=== PATIENT | female | born 1975 | race Caucasian/White ===

== ENCOUNTER 2020-06-01 23:18 | Emergency (ER) | payer MEDICARE ==
[2020-06-02] MEDS ORDERED: Ketorolac Tromethamine 30 MG/ML VIAL ONE (00:15)
== END 2020-06-02 00:22 | disposition home or self-care (01) ==
LOC: CSHERS 23:18
DX: K04.7 Periapical abscess without sinus (principal); B20 Human immunodeficiency virus [HIV] disease; J45.909 Unspecified asthma, uncomplicated; F17.210 Nicotine dependence, cigarettes, uncomplicated; Z79.899 Other long term (current) drug therapy
CPT/HCPCS: 96372; 99282; J1885

== ENCOUNTER 2022-05-03 04:01 | Inpatient (IN) | payer MEDICARE ==
[2022-05-03] MEDS ORDERED: cefTRIAXone\\ROCEPHIN 1 GM VIAL ONE (05:00)
[2022-05-03] MEDS ORDERED: Azithromycin 500 MG VIAL ONE (05:00)
[2022-05-03 05:19] LABS: ALT (SGPT) 33 U/L (8-55); AST (SGOT) 25 U/L (5-34); Albumin 3.7 g/dL (3.5-5.0); Alkaline Phosphatase 117 U/L (40-110); Anion Gap 14 mmol/L (10-20); BUN (Urea Nitrogen) 8 mg/dL (7.0-18.7); Bilirubin, Total 0.2 mg/dL (0.2-1.2); Calc. Creatinine Clearance 0 mL/min (70-130); Calcium 8.5 mg/dL (7.8-10.44); Carbon Dioxide 21 mmol/L (22-29); Chloride 104 mmol/L (98-107); Estimated GFR 108; Globulin 3.6 g/dL (2.4-3.5); Glucose 144 mg/dL (70-105); Potassium 3.7 mmol/L (3.5-5.1); Protein, Total 7.3 g/dL (6.0-8.3); Sodium 135 mmol/L (136-145)
[2022-05-03 05:43] LABS: #Basophils 0.1 10x3/uL (0.0-0.2); #Eosinphils 0.1 10x3/uL (0.0-0.5); #Monocytes 0.5 10x3/uL (0.0-1.1); #Neutrophils 8.1 10x3/uL (1.5-8.4); %Basophils 0.5 % (0.0-2.0); %Eosinophils 0.9 % (0.0-6.0); %Lymphocytes 12.7 % (18.0-47.0); %Monocytes 5.3 % (0.0-10.0); %Neutrophils 80.3 % (40.0-75.0); Hemoglobin 7.9 g/dL (12.0-15.5); Mean Corpuscular HGB CONC 29.5 g/dL (32.0-36.0); Mean Corpuscular Hemoglobin 23.9 pg (27.0-33.0); Mean Corpuscular Volume 81.2 fl (81.6-98.3); Mean Platelet Volume 10.2 fl (7.4-10.4); Platelet Count 437 10x3/uL (150-450); RBC Distribution Width 19.8 % (11.5-14.5)
[2022-05-03] MEDS ORDERED: Ketorolac Tromethamine 30 MG/ML VIAL ONE (06:48)
[2022-05-03] MEDS ORDERED: Iopamidol 370 76% 100 ML VIAL ONE (08:44)
[2022-05-03] MEDS ORDERED: Ondansetron ODT 4 MG TAB PO PRN (09:40)
[2022-05-03] MEDS ORDERED: Ondansetron PF 4 MG/2 ML Vial IVP PRN (09:40)
[2022-05-03] MEDS ORDERED: Senokot S 8.6-50 MG TAB PO PRN (09:40)
[2022-05-03] MEDS ORDERED: SALMETEROL IH PRN (09:46)
[2022-05-03] MEDS ORDERED: Metoprolol Tartrate 25 MG TAB PO PRN (09:46)
[2022-05-03] MEDS ORDERED: FLUTICASONE PROPION IH PRN (09:46)
[2022-05-03] MEDS ORDERED: [UNRECOGNIZED DRUG - OTHER] IH PRN (09:46)
[2022-05-03 09:48] LABS: Bilirubin Neg (Negative); Blood, Urine Negative (Negative); Clarity Clear (Clear); Glucose, Urine (Dipstick) Normal (Negative); Ketone, Urine Negative (Negative); Leukocyte 100 (Negative); Nitrite Negative (Negative); Protein, Urine (Dipstick) 15 mg/dl (Neg-Trace); Specific Gravity, Urine 1.005 (1.005-1.030); Urobilinogen Normal mg/dL (Less than 2)
[2022-05-03] MEDS ORDERED: Benzonatate 100 MG CAP PO PRN (09:53)
[2022-05-03] MEDS ORDERED: Ipratropium/Albuterol 3 ML NEB NEB PRN (09:53)
[2022-05-03 09:58] LABS: Bacteria/HPF Rare-Few HPF (None Seen); RBC/HPF 0-3 HPF (0-3); Squamous Epithelial 0-3 HPF (0-3); WBC/HPF 0-3 HPF (0-3)
[2022-05-03 10:03] LABS: BHCG - Serum Negative (NEGATIVE); Pregs Control Background? CLEAR/WHITE (CLR/WHITE); Pregs Control Bar Appear? YES (CONTROL BAR)
[2022-05-03] MEDS: Ipratropium/Albuterol 3 ML NEB NEB SCH ×4 (10:30→23:34)
[2022-05-03 10:32] LABS: SARS-CoV-2 NAA Rapid Test Not Detected (NotDetected)
[2022-05-03 13:08] LABS: Iron 19 ug/dL (50-170); Iron Binding Capacity, Total 375 mcg/dL (265-497); Transferrin, Serum 300 mg/dL (180-382)
[2022-05-03] MEDS ORDERED: Acetaminophen/Codeine 30-300mg Tablet PO PRN (15:54)
[2022-05-03] MEDS ORDERED: GUAIFENESIN SF SOLN 200 MG/10 ML UDCUP PO PRN (15:54)
[2022-05-03] MEDS: Nicotine 14 MG PATCH TD SCH (16:19)
[2022-05-03] MEDS: Dicyclomine 10 MG CAP PO SCH ×2 (16:27→21:41)
[2022-05-03] MEDS: Sodium Chloride 0.9% 1,000 ML IV SCH (16:28)
[2022-05-03 16:46] VITALS: BMI 59.4
[2022-05-03] MEDS: Arformoterol 15 MCG/2 ML NEB NEB SCH (20:16)
[2022-05-03 20:56] LABS: Legionella Urinary Ag Negative (Negative); Strep pneumo Urine Ag NEGATIVE (NEGATIVE)
[2022-05-03] MEDS: Atorvastatin Calcium 40 MG TAB PO SCH (21:41)
[2022-05-03] MEDS: Famotidine 20 MG TAB PO SCH (21:41)
[2022-05-03] MEDS: busPIRone HCl 5 MG TAB PO SCH (21:41)
[2022-05-03] MEDS: Metoprolol Tartrate 25 MG TAB PO SCH (21:42)
[2022-05-03] MEDS: Acetaminophen 325 MG TAB PO PRN (21:57)
[2022-05-04] MEDS: Acetaminophen 325 MG TAB PO PRN (04:00)
[2022-05-04] MEDS: Ipratropium/Albuterol 3 ML NEB NEB SCH ×6 (04:10→23:33)
[2022-05-04] MEDS: Sodium Chloride 0.9% 1,000 ML IV SCH (04:45)
[2022-05-04 04:56] LABS: #Eosinphils 0.1 10x3/uL (0.0-0.5); #Monocytes 0.4 10x3/uL (0.0-1.1); #Neutrophils 6.2 10x3/uL (1.5-8.4); %Basophils 0.3 % (0.0-2.0); %Eosinophils 0.9 % (0.0-6.0); %Lymphocytes 11.4 % (18.0-47.0); %Monocytes 4.8 % (0.0-10.0); %Neutrophils 82.2 % (40.0-75.0); Hemoglobin 8.7 g/dL (12.0-15.5); Mean Corpuscular HGB CONC 28.9 g/dL (32.0-36.0); Mean Corpuscular Hemoglobin 23.7 pg (27.0-33.0); Mean Platelet Volume 9.8 fl (7.4-10.4); Platelet Count 325 10x3/uL (150-450); RBC Distribution Width 19.9 % (11.5-14.5); Red Blood Cell (RBC) Count 3.67 10x6/uL (3.90-5.03); White Blood Cell (WBC) Count 7.6 10x3/uL (3.5-10.5)
[2022-05-04 05:09] LABS: Anion Gap 16 mmol/L (10-20); BUN (Urea Nitrogen) 4 mg/dL (7.0-18.7); Calc. Creatinine Clearance 265 mL/min (70-130); Calcium 8.6 mg/dL (7.8-10.44); Carbon Dioxide 20 mmol/L (22-29); Chloride 106 mmol/L (98-107); Estimated GFR 111; Glucose 127 mg/dL (70-105); Potassium 3.9 mmol/L (3.5-5.1); Sodium 138 mmol/L (136-145)
[2022-05-04] MEDS: Azithromycin 500 MG in Sodium Chloride 0.9% 250 ML 250 ML IVPB SCH (05:38)
[2022-05-04] MEDS: cefTRIAXone\\ROCEPHIN 2 GM in Sodium Chloride 0.9% 100 ML IVPB SCH (06:49)
[2022-05-04] MEDS: Arformoterol 15 MCG/2 ML NEB NEB SCH ×2 (08:13→19:09)
[2022-05-04] MEDS: Mometasone/Formoterol 60 PUFF AER INH SCH (08:15)
[2022-05-04] MEDS ORDERED: [UNRECOGNIZED DRUG - OTHER] PO SCH (09:00)
[2022-05-04] MEDS: Famotidine 20 MG TAB PO SCH ×2 (09:51→22:24)
[2022-05-04] MEDS: busPIRone HCl 5 MG TAB PO SCH ×2 (09:51→22:23)
[2022-05-04] MEDS: Dicyclomine 10 MG CAP PO SCH ×4 (09:51→22:23)
[2022-05-04] MEDS: Metoprolol Tartrate 25 MG TAB PO SCH ×2 (09:51→23:00)
[2022-05-04] MEDS: guaiFENesin/Codeine Phosphate 100 mg/10 mg 5 ml UD Cup PO PRN (09:51)
[2022-05-04] MEDS: Gabapentin 300 MG CAP PO SCH (09:51)
[2022-05-04] MEDS: Amlodipine 5 MG TAB PO SCH (09:52)
[2022-05-04] MEDS: Nicotine 14 MG PATCH TD SCH (12:04)
[2022-05-04] MEDS: Benzonatate 100 MG CAP PO SCH ×2 (14:08→22:24)
[2022-05-04] MEDS: Acetaminophen/Codeine 30-300mg Tablet PO PRN (15:57)
[2022-05-04] MEDS: Atorvastatin Calcium 40 MG TAB PO SCH (22:24)
[2022-05-05] MEDS: guaiFENesin/Codeine Phosphate 100 mg/10 mg 5 ml UD Cup PO PRN ×3 (01:28→15:26)
[2022-05-05 04:55] LABS: #Eosinphils 0.2 10x3/uL (0.0-0.5); #Monocytes 0.4 10x3/uL (0.0-1.1); #Neutrophils 7.9 10x3/uL (1.5-8.4); %Basophils 0.1 % (0.0-2.0); %Eosinophils 2.3 % (0.0-6.0); %Lymphocytes 8.5 % (18.0-47.0); %Monocytes 4.3 % (0.0-10.0); %Neutrophils 84.4 % (40.0-75.0); Hemoglobin 8.3 g/dL (12.0-15.5); Mean Corpuscular HGB CONC 28.7 g/dL (32.0-36.0); Mean Corpuscular Hemoglobin 23.5 pg (27.0-33.0); Mean Corpuscular Volume 81.9 fl (81.6-98.3); Mean Platelet Volume 9.6 fl (7.4-10.4); Platelet Count 293 10x3/uL (150-450); RBC Distribution Width 19.9 % (11.5-14.5); Red Blood Cell (RBC) Count 3.53 10x6/uL (3.90-5.03); White Blood Cell (WBC) Count 9.4 10x3/uL (3.5-10.5)
[2022-05-05] MEDS: Ipratropium/Albuterol 3 ML NEB NEB SCH ×6 (04:59→22:59)
[2022-05-05 05:06] LABS: Anion Gap 16 mmol/L (10-20); BUN (Urea Nitrogen) 4 mg/dL (7.0-18.7); Calc. Creatinine Clearance 270 mL/min (70-130); Calcium 8.4 mg/dL (7.8-10.44); Carbon Dioxide 20 mmol/L (22-29); Chloride 106 mmol/L (98-107); Estimated GFR 111; Glucose 126 mg/dL (70-105); Potassium 3.5 mmol/L (3.5-5.1); Sodium 138 mmol/L (136-145)
[2022-05-05] MEDS: Azithromycin 500 MG in Sodium Chloride 0.9% 250 ML 250 ML IVPB SCH (05:45)
[2022-05-05] MEDS: Arformoterol 15 MCG/2 ML NEB NEB SCH ×2 (06:40→19:00)
[2022-05-05] MEDS: cefTRIAXone\\ROCEPHIN 2 GM in Sodium Chloride 0.9% 100 ML IVPB SCH (06:46)
[2022-05-05] MEDS: Mometasone/Formoterol 60 PUFF AER INH SCH ×2 (06:55→18:52)
[2022-05-05] MEDS: Benzonatate 100 MG CAP PO SCH ×3 (08:16→21:05)
[2022-05-05] MEDS: busPIRone HCl 5 MG TAB PO SCH ×2 (08:16→21:05)
[2022-05-05] MEDS: Amlodipine 5 MG TAB PO SCH (08:17)
[2022-05-05] MEDS: Famotidine 20 MG TAB PO SCH ×2 (08:17→21:05)
[2022-05-05] MEDS: Gabapentin 300 MG CAP PO SCH (08:18)
[2022-05-05] MEDS: Dicyclomine 10 MG CAP PO SCH ×4 (08:18→21:05)
[2022-05-05] MEDS: Metoprolol Tartrate 25 MG TAB PO SCH ×2 (08:18→21:07)
[2022-05-05] MEDS: Nicotine 14 MG PATCH TD SCH (11:00)
[2022-05-05] MEDS: Acetaminophen/Codeine 30-300mg Tablet PO PRN ×2 (11:21→21:06)
[2022-05-05] MEDS: Cyclobenzaprine 10 MG TAB PO PRN (11:22)
[2022-05-05] MEDS: Atorvastatin Calcium 40 MG TAB PO SCH (21:04)
[2022-05-06] MEDS: Ipratropium/Albuterol 3 ML NEB NEB SCH ×6 (02:55→22:55)
[2022-05-06] MEDS: Cyclobenzaprine 10 MG TAB PO PRN ×3 (05:24→20:51)
[2022-05-06 06:57] LABS: #Eosinphils 0.5 10x3/uL (0.0-0.5); #Monocytes 0.4 10x3/uL (0.0-1.1); #Neutrophils 7.9 10x3/uL (1.5-8.4); %Basophils 0.1 % (0.0-2.0); %Eosinophils 4.6 % (0.0-6.0); %Lymphocytes 9.9 % (18.0-47.0); %Monocytes 4.3 % (0.0-10.0); %Neutrophils 80.7 % (40.0-75.0); Anion Gap 14 mmol/L (10-20); BUN (Urea Nitrogen) 4 mg/dL (7.0-18.7); Calc. Creatinine Clearance 274 mL/min (70-130); Calcium 8.5 mg/dL (7.8-10.44); Carbon Dioxide 21 mmol/L (22-29); Chloride 105 mmol/L (98-107); Estimated GFR 112; Glucose 139 mg/dL (70-105); Hemoglobin 8.6 g/dL (12.0-15.5); Mean Corpuscular HGB CONC 28.1 g/dL (32.0-36.0); Mean Corpuscular Hemoglobin 23.4 pg (27.0-33.0); Mean Corpuscular Volume 83.2 fl (81.6-98.3); Mean Platelet Volume 9.6 fl (7.4-10.4); Platelet Count 263 10x3/uL (150-450); Potassium 3.3 mmol/L (3.5-5.1); RBC Distribution Width 19.9 % (11.5-14.5); Red Blood Cell (RBC) Count 3.68 10x6/uL (3.90-5.03); Sodium 137 mmol/L (136-145); White Blood Cell (WBC) Count 9.7 10x3/uL (3.5-10.5)
[2022-05-06] MEDS: Arformoterol 15 MCG/2 ML NEB NEB SCH ×2 (07:25→19:07)
[2022-05-06] MEDS: Mometasone/Formoterol 60 PUFF AER INH SCH ×2 (07:35→19:07)
[2022-05-06] MEDS: Amlodipine 5 MG TAB PO SCH (09:02)
[2022-05-06] MEDS: Benzonatate 100 MG CAP PO SCH ×3 (09:02→20:50)
[2022-05-06] MEDS: busPIRone HCl 5 MG TAB PO SCH ×2 (09:03→20:50)
[2022-05-06] MEDS: Metoprolol Tartrate 25 MG TAB PO SCH ×2 (09:03→23:10)
[2022-05-06] MEDS: Famotidine 20 MG TAB PO SCH ×2 (09:03→20:50)
[2022-05-06] MEDS: Gabapentin 300 MG CAP PO SCH (09:03)
[2022-05-06] MEDS: Acetaminophen/Codeine 30-300mg Tablet PO PRN ×2 (09:04→15:03)
[2022-05-06] MEDS: Dicyclomine 10 MG CAP PO SCH ×4 (09:04→20:51)
[2022-05-06] MEDS ORDERED: Potassium Chloride 20 MEQ TAB PO SCH (09:30)
[2022-05-06] MEDS: Nicotine 14 MG PATCH TD SCH (10:37)
[2022-05-06] MEDS: Azithromycin 500 MG in Sodium Chloride 0.9% 250 ML 250 ML IVPB SCH (13:08)
[2022-05-06] MEDS: Aztreonam 1 GM in Sodium Chloride 0.9% 100 ML IVPB SCH ×2 (14:30→20:56)
[2022-05-06] MEDS: diphenhydrAMINE 25 MG CAP PO PRN (17:06)
[2022-05-06] MEDS: guaiFENesin/Codeine Phosphate 100 mg/10 mg 5 ml UD Cup PO PRN (20:49)
[2022-05-06] MEDS: Atorvastatin Calcium 40 MG TAB PO SCH (20:50)
[2022-05-07] MEDS: Ipratropium/Albuterol 3 ML NEB NEB SCH ×6 (02:15→23:10)
[2022-05-07] MEDS: Aztreonam 1 GM in Sodium Chloride 0.9% 100 ML IVPB SCH ×3 (05:34→21:04)
[2022-05-07] MEDS: Arformoterol 15 MCG/2 ML NEB NEB SCH ×2 (07:30→19:00)
[2022-05-07] MEDS: Mometasone/Formoterol 60 PUFF AER INH SCH ×2 (07:40→19:10)
[2022-05-07 09:50] LABS: Anion Gap 17 mmol/L (10-20); BUN (Urea Nitrogen) 5 mg/dL (7.0-18.7); Calc. Creatinine Clearance 261 mL/min (70-130); Calcium 8.6 mg/dL (7.8-10.44); Carbon Dioxide 21 mmol/L (22-29); Chloride 106 mmol/L (98-107); Estimated GFR 110; Glucose 145 mg/dL (70-105); Potassium 3.5 mmol/L (3.5-5.1); Sodium 140 mmol/L (136-145)
[2022-05-07] MEDS: Famotidine 20 MG TAB PO SCH ×2 (10:01→21:06)
[2022-05-07] MEDS: Amlodipine 5 MG TAB PO SCH (10:01)
[2022-05-07] MEDS: Dicyclomine 10 MG CAP PO SCH ×4 (10:01→21:06)
[2022-05-07] MEDS: busPIRone HCl 5 MG TAB PO SCH ×2 (10:01→21:06)
[2022-05-07] MEDS: Benzonatate 100 MG CAP PO SCH ×3 (10:02→21:06)
[2022-05-07] MEDS: Gabapentin 300 MG CAP PO SCH (10:02)
[2022-05-07] MEDS: Metoprolol Tartrate 25 MG TAB PO SCH ×2 (10:02→21:21)
[2022-05-07] MEDS: Azithromycin 500 MG in Sodium Chloride 0.9% 250 ML 250 ML IVPB SCH (12:04)
[2022-05-07] MEDS: Nicotine 14 MG PATCH TD SCH (12:10)
[2022-05-07] MEDS: diphenhydrAMINE 25 MG CAP PO PRN ×2 (13:12→21:06)
[2022-05-07] MEDS: Atorvastatin Calcium 40 MG TAB PO SCH (21:06)
[2022-05-07] MEDS: Cyclobenzaprine 10 MG TAB PO PRN (21:06)
[2022-05-08] MEDS: Ipratropium/Albuterol 3 ML NEB NEB SCH ×5 (03:15→19:39)
[2022-05-08] MEDS: Aztreonam 1 GM in Sodium Chloride 0.9% 100 ML IVPB SCH ×3 (05:01→21:53)
[2022-05-08 05:04] LABS: Anion Gap 17 mmol/L (10-20); BUN (Urea Nitrogen) 7 mg/dL (7.0-18.7); Calc. Creatinine Clearance 270 mL/min (70-130); Calcium 8.6 mg/dL (7.8-10.44); Carbon Dioxide 22 mmol/L (22-29); Chloride 107 mmol/L (98-107); Estimated GFR 111; Glucose 118 mg/dL (70-105); Potassium 3.5 mmol/L (3.5-5.1); Sodium 142 mmol/L (136-145)
[2022-05-08] MEDS: Arformoterol 15 MCG/2 ML NEB NEB SCH ×2 (07:15→19:37)
[2022-05-08] MEDS: Mometasone/Formoterol 60 PUFF AER INH SCH ×3 (07:20→19:45)
[2022-05-08] MEDS: Amlodipine 5 MG TAB PO SCH (08:57)
[2022-05-08] MEDS: Dicyclomine 10 MG CAP PO SCH ×4 (08:57→21:54)
[2022-05-08] MEDS: Famotidine 20 MG TAB PO SCH ×2 (08:57→21:54)
[2022-05-08] MEDS: Metoprolol Tartrate 25 MG TAB PO SCH ×2 (08:57→21:55)
[2022-05-08] MEDS: busPIRone HCl 5 MG TAB PO SCH ×2 (08:57→21:54)
[2022-05-08] MEDS: Benzonatate 100 MG CAP PO SCH ×3 (08:57→21:54)
[2022-05-08] MEDS: Gabapentin 300 MG CAP PO SCH (08:58)
[2022-05-08] MEDS: Acetaminophen/Codeine 30-300mg Tablet PO PRN (09:13)
[2022-05-08] MEDS: Nicotine 14 MG PATCH TD SCH (11:24)
[2022-05-08] MEDS: Azithromycin 500 MG in Sodium Chloride 0.9% 250 ML 250 ML IVPB SCH (13:11)
[2022-05-08] MEDS: Atorvastatin Calcium 40 MG TAB PO SCH (21:54)
[2022-05-09] MEDS: Ipratropium/Albuterol 3 ML NEB NEB SCH ×4 (02:05→11:54)
[2022-05-09] MEDS: Aztreonam 1 GM in Sodium Chloride 0.9% 100 ML IVPB SCH (05:05)
[2022-05-09 05:19] LABS: Anion Gap 15 mmol/L (10-20); BUN (Urea Nitrogen) 9 mg/dL (7.0-18.7); Calc. Creatinine Clearance 270 mL/min (70-130); Calcium 8.6 mg/dL (7.8-10.44); Carbon Dioxide 23 mmol/L (22-29); Chloride 107 mmol/L (98-107); Estimated GFR 111; Glucose 115 mg/dL (70-105); Potassium 3.7 mmol/L (3.5-5.1); Sodium 141 mmol/L (136-145)
[2022-05-09] MEDS: Arformoterol 15 MCG/2 ML NEB NEB SCH (07:40)
[2022-05-09] MEDS: Mometasone/Formoterol 60 PUFF AER INH SCH (07:45)
[2022-05-09] MEDS: Amlodipine 5 MG TAB PO SCH (08:28)
[2022-05-09] MEDS: Dicyclomine 10 MG CAP PO SCH (08:28)
[2022-05-09] MEDS: Gabapentin 300 MG CAP PO SCH (08:29)
[2022-05-09] MEDS: Famotidine 20 MG TAB PO SCH (08:30)
[2022-05-09] MEDS: Metoprolol Tartrate 25 MG TAB PO SCH (08:31)
[2022-05-09] MEDS: Benzonatate 100 MG CAP PO SCH (08:31)
[2022-05-09] MEDS: busPIRone HCl 5 MG TAB PO SCH (08:31)
[2022-05-09 11:58] VITALS: BP 120/71; TEMP 98.4
[2022-05-09] MEDS: Nicotine 14 MG PATCH TD SCH (12:23)
== END 2022-05-09 12:45 | disposition home or self-care (01) | DRG 871 ==
LOC: CSHERS 04:01 → CSHTELE 14:15 → OBSVTOIN 05-04 09:15
PROVIDERS: ADMIT Internal Medicine; ATTEND Internal Medicine
DX: A41.9 Sepsis, unspecified organism (principal); J18.9 Pneumonia, unspecified organism; J96.01 Acute respiratory failure with hypoxia; I25.10 Atherosclerotic heart disease of native coronary artery without angina pectoris; I10 Essential (primary) hypertension; J45.909 Unspecified asthma, uncomplicated; F41.9 Anxiety disorder, unspecified; D50.9 Iron deficiency anemia, unspecified; Z21 Asymptomatic human immunodeficiency virus [HIV] infection status; F17.210 Nicotine dependence, cigarettes, uncomplicated; Z20.822 Contact with and (suspected) exposure to COVID-19; L89.329 Pressure ulcer of left buttock, unspecified stage; L89.319 Pressure ulcer of right buttock, unspecified stage; L89.229 Pressure ulcer of left hip, unspecified stage; F31.9 Bipolar disorder, unspecified; Z88.1 Allergy status to other antibiotic agents; Z88.8 Allergy status to other drugs, medicaments and biological substances; Z79.51 Long term (current) use of inhaled steroids; I25.2 Old myocardial infarction; Z79.899 Other long term (current) drug therapy; Z79.82 Long term (current) use of aspirin; Z90.49 Acquired absence of other specified parts of digestive tract; Z98.890 Other specified postprocedural states; Z89.512 Acquired absence of left leg below knee; Z93.3 Colostomy status
CPT/HCPCS: 36415; 71045; 71275; 80048; 80053; 81003; 81015; 83540; 83550; 83605; 83880; 84466; 84484; 84703; 85025; 86850; 86900; 86901; 87040; 87070; 87205; 87449; 87899; 93005; 94640; 94664; 94667; 94668; 94760; 94799; 96361; 96365; 96367; 96372; 96375; 96376; 97139; G0378; J0456; J0696; J1650; J1885; J1956; J3490; J7050; J7620; Q9967; U0002

== ENCOUNTER 2022-11-13 04:43 | Emergency (ER) | payer MEDICARE ==
[2022-11-13] MEDS ORDERED: Ketorolac Tromethamine 30 MG/ML VIAL ONE (05:14)
[2022-11-13 05:28] LABS: #Monocytes 0.2 10x3/uL (0.0-1.1); #Neutrophils 3.1 10x3/uL (1.5-8.4); %Basophils 0.5 % (0.0-2.0); %Eosinophils 0.5 % (0.0-6.0); %Lymphocytes 9.4 % (18.0-47.0); %Monocytes 6.2 % (0.0-10.0); %Neutrophils 83.1 % (40.0-75.0); Hematocrit 34.2 % (34.9-44.5); Mean Corpuscular HGB CONC 29.2 g/dL (32.0-36.0); Mean Corpuscular Hemoglobin 23.9 pg (27.0-33.0); Mean Corpuscular Volume 81.8 fl (81.6-98.3); Mean Platelet Volume 9.8 fl (7.4-10.4); Platelet Count 195 10x3/uL (150-450); RBC Distribution Width 19.9 % (11.5-14.5); Red Blood Cell (RBC) Count 4.18 10x6/uL (3.90-5.03); White Blood Cell (WBC) Count 3.7 10x3/uL (3.5-10.5)
[2022-11-13 05:48] LABS: ALT (SGPT) 18 U/L (8-55); AST (SGOT) 20 U/L (5-34); Albumin 3.5 g/dL (3.5-5.0); Alkaline Phosphatase 108 U/L (40-110); Anion Gap 12 mmol/L (10-20); BUN (Urea Nitrogen) 6 mg/dL (7.0-18.7); Bilirubin, Total 0.2 mg/dL (0.2-1.2); Calc. Creatinine Clearance 0 mL/min (70-130); Calcium 8.2 mg/dL (7.8-10.44); Carbon Dioxide 19 mmol/L (22-29); Chloride 108 mmol/L (98-107); Estimated GFR 110; Globulin 3.7 g/dL (2.4-3.5); Glucose 115 mg/dL (70-105); Lipase 33 U/L (8-78); Magnesium 1.7 mg/dL (1.6-2.6); Potassium 3.4 mmol/L (3.5-5.1); Protein, Total 7.2 g/dL (6.0-8.3); Sodium 136 mmol/L (136-145)
[2022-11-13 05:55] LABS: Troponin I Less than 0.010 ng/mL (< 0.028)
[2022-11-13 06:04] LABS: SARS-CoV-2 NAA Rapid Test DETECTED (NotDetected)
== END 2022-11-13 07:03 | disposition home or self-care (01) ==
LOC: CSHERS 04:43
DX: U07.1 COVID-19 (principal); I10 Essential (primary) hypertension; I25.10 Atherosclerotic heart disease of native coronary artery without angina pectoris; F17.210 Nicotine dependence, cigarettes, uncomplicated
CPT/HCPCS: 0240U; 71045; 83605; 83690; 83735; 83880; 84484; 93005; 80053; 84443; 85025; 93010; 96372; 99285; J1885

== ENCOUNTER 2024-02-12 21:54 | Emergency (ER) | payer MEDICARE, OTHER ==
[2024-02-13] MEDS ORDERED: methylPREDNISolone Sod Succ/PF 125 MG/2 ML VIAL ONE (00:51)
[2024-02-13] MEDS ORDERED: Ketorolac Tromethamine 30 MG (1 mL) VIAL ONE (00:52)
[2024-02-13] MEDS ORDERED: Ipratropium/Albuterol 3 ML NEB ONE (00:54)
[2024-02-13 01:06] LABS: #Basophils 0.02 10x3/uL (0.0-0.2); #Eosinophils 0.09 10x3/uL (0.0-0.5); #Monocytes 0.36 10x3/uL (0.0-1.1); #Neutrophils 3.37 10x3/uL (1.5-8.4); %Basophils 0.3 % (0.0-2.0); %Eosinophils 1.4 % (0.0-6.0); %Lymphocytes 40.1 % (18.0-47.0); %Monocytes 5.6 % (0.0-10.0); %Neutrophils 52.3 % (40.0-75.0); Hematocrit 31.2 % (34.9-44.5); Hemoglobin 8.8 g/dL (12.0-15.5); Mean Corpuscular HGB CONC 28.2 g/dL (32.0-36.0); Mean Corpuscular Hemoglobin 24.6 pg (27.0-33.0); Mean Corpuscular Volume 87.2 fL (81.6-98.3); Mean Platelet Volume 9.3 fL (7.4-10.4); Platelet Count 303 10x3/uL (150-450); RBC Distribution Width 22.8 % (11.5-14.5); Red Blood Cell (RBC) Count 3.58 10x6/uL (3.90-5.03); White Blood Cell (WBC) Count 6.4 10x3/uL (3.5-10.5)
[2024-02-13 01:23] LABS: ALT (SGPT) 30 U/L (8-55); AST (SGOT) 28 U/L (5-34); Albumin 3.4 g/dL (3.5-5.0); Alkaline Phosphatase 229 U/L (40-110); Anion Gap 14 mmol/L (10-20); BUN (Urea Nitrogen) 10 mg/dL (7.0-18.7); Bilirubin, Total 0.4 mg/dL (0.2-1.2); Calc. Creatinine Clearance 0 mL/min (70-130); Calcium 7.9 mg/dL (7.8-10.44); Carbon Dioxide 21 mmol/L (22-29); Chloride 108 mmol/L (98-107); Estimated GFR 109; Globulin 3.8 g/dL (2.4-3.5); Glucose 124 mg/dL (70-105); Lipase 37 U/L (8-78); Potassium 3.6 mmol/L (3.5-5.1); Protein, Total 7.2 g/dL (6.0-8.3); Sodium 139 mmol/L (136-145)
[2024-02-13 01:33] LABS: Troponin I Less than 0.010 ng/mL (< 0.028)
[2024-02-13 01:41] LABS: Elliptocytes SLIGHT = 2-5 cells (100X) (0-1/hpf); Platelet Adequacy Comment Appears Adequate
[2024-02-13 01:42] LABS: Anisocytosis SLIGHT = 6-15 cells (100X) (0-5/hpf); Hypochromia SLIGHT = 6-15 cells (100X) (0-5/hpf); Ovalocytes SLIGHT = 2-5 cells (100X) (0-1/hpf); Polychromasia SLIGHT = 2-3 cells (100X) (0-2/hpf)
== END 2024-02-13 02:42 | disposition home or self-care (01) ==
LOC: CSHERS 21:54
DX: J44.9 Chronic obstructive pulmonary disease, unspecified (principal); I10 Essential (primary) hypertension; F17.210 Nicotine dependence, cigarettes, uncomplicated; F17.290 Nicotine dependence, other tobacco product, uncomplicated; Z55.6 Problems related to health literacy
CPT/HCPCS: 71045; 80053; 83690; 83880; 84484; 85025; 85379; 87428; 94640; 94760; J1885; J2919; 96374; 96375; J7620

== ENCOUNTER 2024-10-01 02:35 | Inpatient (IN) | payer MEDICARE ==
[2024-10-01 03:30] LABS: #Basophils 0.02 10x3/uL (0.0-0.2); #Eosinophils 0.04 10x3/uL (0.0-0.5); #Monocytes 0.18 10x3/uL (0.0-1.1); #Neutrophils 2.98 10x3/uL (1.5-8.4); %Basophils 0.5 % (0.0-2.0); %Eosinophils 1.0 % (0.0-6.0); %Lymphocytes 21.3 % (18.0-47.0); %Monocytes 4.4 % (0.0-10.0); %Neutrophils 72.8 % (40.0-75.0); Hematocrit 37.6 % (34.9-44.5); Hemoglobin 10.4 g/dL (12.0-15.5); Mean Corpuscular Hemoglobin 22.5 pg (27.0-33.0); Mean Corpuscular Volume 81.4 fL (81.6-98.3); Platelet Count 237 10x3/uL (150-450); Red Blood Cell (RBC) Count 4.62 10x6/uL (3.90-5.03); White Blood Cell (WBC) Count 4.09 10x3/uL (3.5-10.5)
[2024-10-01 03:33] LABS: Glucose, Urine (Dipstick) Normal (Negative); Leukocyte 100 (Negative); Protein, Urine (Dipstick) 15 mg/dl (Neg-Trace); Specific Gravity, Urine 1.005 (1.005-1.030)
[2024-10-01 03:47] LABS: Bacteria/HPF Rare-Few HPF (None Seen); CAUTI Indications for Culture Fever or rigors; RBC/HPF 0-3 HPF (0-3); WBC/HPF 0-3 HPF (0-3)
[2024-10-01 03:48] LABS: Urine Culture Reflex No No
[2024-10-01 04:06] LABS: ALT (SGPT) 23 U/L (Less than 34); AST (SGOT) 39 U/L (11-34); Albumin 3.4 g/dL (3.1-4.5); Alkaline Phosphatase 243 U/L (40-110); Anion Gap 15 mmol/L (10-20); BUN (Urea Nitrogen) 6 mg/dL (7.0-18.7); Bilirubin, Total 0.3 mg/dL (0.3-1.2); Calc. Creatinine Clearance 0 mL/min (70-130); Calcium 7.9 mg/dL (7.8-10.44); Carbon Dioxide 16 mmol/L (22-29); Chloride 110 mmol/L (98-107); Globulin 4.8 g/dL (2.4-3.5); Glucose 103 mg/dL (70-105); Lipase 21 U/L (8-78); Magnesium 1.9 mg/dL (1.6-2.6); Potassium 3.6 mmol/L (3.5-5.1); Sodium 137 mmol/L (136-145)
[2024-10-01] MEDS ORDERED: Ketorolac Tromethamine 30 MG (1 mL) VIAL ONE (04:13)
[2024-10-01] MEDS ORDERED: Cefepime 2 GM VIAL ONE (04:13)
[2024-10-01] MEDS ORDERED: Melatonin 3 MG TAB PO PRN (10:12)
[2024-10-01] MEDS ORDERED: cefTRIAXone\\ROCEPHIN 1 GM in Sodium Chloride 0.9% 100 ML IVPB SCH (10:45)
[2024-10-01] MEDS ORDERED: Glucagon 1 MG/ML KIT IM PRN (10:51)
[2024-10-01] MEDS ORDERED: Dextrose 50% Abboject 50 ML SYRINGE SLOW IVP PRN (10:51)
[2024-10-01 11:08] VITALS: BMI 51.0
[2024-10-01] MEDS: Clindamycin/D5W 900 MG in Premix 1 BAG IVPB SCH (12:35)
[2024-10-01] MEDS: Ondansetron PF 4 MG/2 ML Vial IVP PRN (13:00)
[2024-10-01] MEDS: Fluconazole 100 MG TAB PO SCH (21:19)
[2024-10-01] MEDS ORDERED: Lidocaine 2% 6 ML (Jelly) SYR TOP PRN (21:38)
[2024-10-01] MEDS: Gabapentin 300 MG CAP PO SCH (22:21)
[2024-10-01] MEDS: Acetaminophen 325 MG TAB PO PRN (23:57)
[2024-10-02 06:27] LABS: Anion Gap 11 mmol/L (10-20); BUN (Urea Nitrogen) Less than 4 mg/dL (7.0-18.7); Calc. Creatinine Clearance 278 mL/min (70-130); Calcium 7.6 mg/dL (7.8-10.44); Carbon Dioxide 22 mmol/L (22-29); Chloride 112 mmol/L (98-107); Glucose 105 mg/dL (70-105); Magnesium 1.9 mg/dL (1.6-2.6); Potassium 3.3 mmol/L (3.5-5.1); Sodium 142 mmol/L (136-145)
[2024-10-02 06:28] LABS: #Basophils Less than 0.03 10x3/uL (0.0-0.2); #Eosinophils 0.15 10x3/uL (0.0-0.5); #Monocytes 0.38 10x3/uL (0.0-1.1); #Neutrophils 2.66 10x3/uL (1.5-8.4); %Basophils 0.4 % (0.0-2.0); %Eosinophils 3.0 % (0.0-6.0); %Lymphocytes 36.2 % (18.0-47.0); %Monocytes 7.5 % (0.0-10.0); %Neutrophils 52.5 % (40.0-75.0); Hematocrit 33.8 % (34.9-44.5); Hemoglobin 9.4 g/dL (12.0-15.5); Mean Corpuscular Hemoglobin 22.5 pg (27.0-33.0); Mean Corpuscular Volume 80.9 fL (81.6-98.3); Platelet Count 215 10x3/uL (150-450); Red Blood Cell (RBC) Count 4.18 10x6/uL (3.90-5.03); White Blood Cell (WBC) Count 5.06 10x3/uL (3.5-10.5)
[2024-10-02] MEDS ORDERED: LAMOTRIGINE 50 MG PO SCH (09:00)
[2024-10-02] MEDS ORDERED: [UNRECOGNIZED DRUG - OTHER] PO SCH (09:00)
[2024-10-02] MEDS: Gabapentin 300 MG CAP PO SCH (09:52)
[2024-10-02] MEDS: Aspirin 81 mg Enteric Coated Tablet PO SCH (09:53)
[2024-10-02] MEDS ORDERED: Ventolin HFA Inhaler 60 PUFF INHALER INH PRN (10:16)
[2024-10-02 11:39] LABS: %CD4 (Helper/Inducer) 51.8 % (30.8-58.5); Absolute CD4 829 /uL (359-1519); Lymphocytes/Gated Cell Count 1.6 x10E3/uL (0.7-3.1); Total Lymphocyte 44 % (Not Estab.); WBC Total Count 3.6 x10E3/uL (3.4-10.8)
[2024-10-02] MEDS ORDERED: Nystatin Powder 15 GM BOT TOP PRN (12:28)
[2024-10-02 13:19] LABS: Campy jejuni + coli by PCR Negative (Negative); STEC Shiga Toxin 1+2 Negative (Negative); Salmonella spp. by PCR Negative (Negative); Shigella spp + EIEC by PCR Negative (Negative)
[2024-10-02 16:04] VITALS: BMI 51.0
[2024-10-03 04:44] LABS: #Basophils Less than 0.03 10x3/uL (0.0-0.2); #Eosinophils 0.34 10x3/uL (0.0-0.5); #Monocytes 0.42 10x3/uL (0.0-1.1); #Neutrophils 2.80 10x3/uL (1.5-8.4); %Basophils 0.3 % (0.0-2.0); %Eosinophils 5.8 % (0.0-6.0); %Lymphocytes 38.7 % (18.0-47.0); %Monocytes 7.2 % (0.0-10.0); %Neutrophils 47.7 % (40.0-75.0); Hematocrit 33.1 % (34.9-44.5); Hemoglobin 9.3 g/dL (12.0-15.5); Mean Corpuscular Hemoglobin 22.8 pg (27.0-33.0); Mean Corpuscular Volume 81.1 fL (81.6-98.3); Platelet Count 225 10x3/uL (150-450); Red Blood Cell (RBC) Count 4.08 10x6/uL (3.90-5.03); White Blood Cell (WBC) Count 5.87 10x3/uL (3.5-10.5)
[2024-10-03 04:52] LABS: Anion Gap 11 mmol/L (10-20); BUN (Urea Nitrogen) 11 mg/dL (7.0-18.7); Calc. Creatinine Clearance 227 mL/min (70-130); Calcium 7.9 mg/dL (7.8-10.44); Carbon Dioxide 24 mmol/L (22-29); Chloride 112 mmol/L (98-107); Glucose 107 mg/dL (70-105); Potassium 3.9 mmol/L (3.5-5.1); Sodium 143 mmol/L (136-145)
[2024-10-03] MEDS: Ketorolac Tromethamine 30 MG (1 mL) VIAL IVP SCH (06:47)
[2024-10-03] MEDS: Dicyclomine 10 MG CAP PO PRN (18:02)
[2024-10-03 19:38] LABS: HIV-1 Quantitative, RNA PCR <20 copies/mL (.)
[2024-10-04 04:36] LABS: #Basophils 0.03 10x3/uL (0.0-0.2); #Eosinophils 0.41 10x3/uL (0.0-0.5); #Monocytes 0.39 10x3/uL (0.0-1.1); #Neutrophils 3.62 10x3/uL (1.5-8.4); %Basophils 0.4 % (0.0-2.0); %Eosinophils 6.0 % (0.0-6.0); %Lymphocytes 34.3 % (18.0-47.0); %Monocytes 5.7 % (0.0-10.0); %Neutrophils 53.5 % (40.0-75.0); Hematocrit 30.5 % (34.9-44.5); Hemoglobin 8.9 g/dL (12.0-15.5); Mean Corpuscular Hemoglobin 23.8 pg (27.0-33.0); Mean Corpuscular Volume 81.6 fL (81.6-98.3); Platelet Count 247 10x3/uL (150-450); Red Blood Cell (RBC) Count 3.74 10x6/uL (3.90-5.03); White Blood Cell (WBC) Count 6.79 10x3/uL (3.5-10.5)
[2024-10-04 04:49] LABS: Anion Gap 10 mmol/L (10-20); BUN (Urea Nitrogen) 10 mg/dL (7.0-18.7); Calc. Creatinine Clearance 284 mL/min (70-130); Calcium 7.4 mg/dL (7.8-10.44); Carbon Dioxide 23 mmol/L (22-29); Chloride 112 mmol/L (98-107); Glucose 91 mg/dL (70-105); Potassium 3.9 mmol/L (3.5-5.1); Sodium 141 mmol/L (136-145)
[2024-10-04 13:49] VITALS: BP 111/64; TEMP 97.6
== END 2024-10-04 13:15 | disposition home or self-care (01) | DRG 871 ==
LOC: CSHERS 02:35 → CSHERHOLD 05:39 → CSHTELE 10:05
PROVIDERS: ADMIT Internal Medicine; ATTEND Physician Assistant
DX: A41.9 Sepsis, unspecified organism (principal); T87.89 Other complications of amputation stump; L89.313 Pressure ulcer of right buttock, stage 3; L89.893 Pressure ulcer of other site, stage 3; N39.0 Urinary tract infection, site not specified; A09 Infectious gastroenteritis and colitis, unspecified; Z88.8 Allergy status to other drugs, medicaments and biological substances; Z79.899 Other long term (current) drug therapy; I25.2 Old myocardial infarction; I25.10 Atherosclerotic heart disease of native coronary artery without angina pectoris; I10 Essential (primary) hypertension; Z90.49 Acquired absence of other specified parts of digestive tract; Z98.890 Other specified postprocedural states; Z87.891 Personal history of nicotine dependence; E78.5 Hyperlipidemia, unspecified; Z21 Asymptomatic human immunodeficiency virus [HIV] infection status
CPT/HCPCS: 36415; 36416; 71045; 80048; 80053; 81001; 83605; 83690; 83735; 85025; 86361; 87015; 87040; 87077; 87086; 87186; 87206; 87324; 87426; 87449; 87505; 87536; 96374; 96375; 97139; J0692; J1885; J2270; J2272; J2405; J3490; J7120

== ENCOUNTER 2024-11-14 18:53 | Inpatient (IN) | payer MEDICARE ==
[~2024-11-14 18:53] MED LIST: Iopamidol 300 61% 100 ML VIAL FS ONE
[2024-11-14] MEDS ORDERED: Ketorolac Tromethamine 30 MG (1 mL) VIAL ONE (19:39)
[2024-11-14 20:05] LABS: #Basophils 0.03 10x3/uL (0.0-0.2); #Eosinophils 0.14 10x3/uL (0.0-0.5); #Monocytes 0.37 10x3/uL (0.0-1.1); #Neutrophils 3.45 10x3/uL (1.5-8.4); %Basophils 0.5 % (0.0-2.0); %Eosinophils 2.2 % (0.0-6.0); %Lymphocytes 36.2 % (18.0-47.0); %Monocytes 5.9 % (0.0-10.0); %Neutrophils 54.9 % (40.0-75.0); Hematocrit 28.5 % (34.9-44.5); Hemoglobin 8.1 g/dL (12.0-15.5); Mean Corpuscular Hemoglobin 23.2 pg (27.0-33.0); Mean Corpuscular Volume 81.7 fL (81.6-98.3); Platelet Count 217 10x3/uL (150-450); Red Blood Cell (RBC) Count 3.49 10x6/uL (3.90-5.03); White Blood Cell (WBC) Count 6.29 10x3/uL (3.5-10.5)
[2024-11-14 20:22] LABS: ALT (SGPT) 18 U/L (Less than 34); AST (SGOT) 15 U/L (11-34); Albumin 3.3 g/dL (3.1-4.5); Alkaline Phosphatase 236 U/L (40-110); Anion Gap 11 mmol/L (10-20); BUN (Urea Nitrogen) 8 mg/dL (7.0-18.7); Bilirubin, Total 0.2 mg/dL (0.3-1.2); Calc. Creatinine Clearance 0 mL/min (70-130); Calcium 8.1 mg/dL (7.8-10.44); Carbon Dioxide 20 mmol/L (22-29); Chloride 113 mmol/L (98-107); Globulin 3.6 g/dL (2.4-3.5); Glucose 116 mg/dL (70-105); Potassium 4.3 mmol/L (3.5-5.1); Sodium 140 mmol/L (136-145)
[2024-11-14 20:23] LABS: Acetaminophen 11 mcg/mL (Less than 10); Salicylate Less than 8.0 mg/dL (Less than 8.0)
[2024-11-14 20:29] LABS: Troponin I Less than 0.010 ng/mL (< 0.028)
[2024-11-14 20:58] LABS: Anisocytosis SLIGHT = 6-15 cells (100X) (0-5/hpf); MDiff Complete? YES; Platelet Adequacy Comment Appears Adequate
[2024-11-14 21:29] LABS: INR-International Normal Ratio 1.0; PTT 27.0 sec (22.0-33.0); Prothrombin Time 11.3 sec (9.5-12.1)
[2024-11-14] MEDS: Acetylcysteine 20% (200mg/mL) 5,000 MG in Dextrose 5% in Water 500 ML IV SCH (23:34)
[2024-11-14] MEDS: Acetylcysteine 20% (200mg/mL) 15,000 MG in Dextrose 5% in Water 200 ML IV SCH (23:35)
[2024-11-14 23:46] VITALS: BMI 52.0
[2024-11-15] MEDS ORDERED: diphenhydrAMINE 25 MG CAP PO PRN (01:03)
[2024-11-15] MEDS ORDERED: Ventolin HFA Inhaler 60 PUFF INHALER INH PRN (01:03)
[2024-11-15] MEDS: Communication Order-Pharmacy FS SCH (01:35)
[2024-11-15] MEDS: Ketorolac Tromethamine 30 MG (1 mL) VIAL IVP PRN (02:08)
[2024-11-15] MEDS: Acetylcysteine 20% (200mg/mL) 10,000 MG in Dextrose 5% in Water 1,000 ML IV SCH (03:39)
[2024-11-15] MEDS: Albuterol 1.25 MG (3 mL) NEB NEB SCH (03:50)
[2024-11-15 03:52] LABS: #Basophils Less than 0.03 10x3/uL (0.0-0.2); #Eosinophils 0.09 10x3/uL (0.0-0.5); #Monocytes 0.30 10x3/uL (0.0-1.1); #Neutrophils 4.05 10x3/uL (1.5-8.4); %Basophils 0.1 % (0.0-2.0); %Eosinophils 1.3 % (0.0-6.0); %Lymphocytes 33.6 % (18.0-47.0); %Monocytes 4.4 % (0.0-10.0); %Neutrophils 60.2 % (40.0-75.0); Hematocrit 27.7 % (34.9-44.5); Hemoglobin 7.7 g/dL (12.0-15.5); Mean Corpuscular Hemoglobin 22.5 pg (27.0-33.0); Mean Corpuscular Volume 81.0 fL (81.6-98.3); Platelet Count 193 10x3/uL (150-450); Red Blood Cell (RBC) Count 3.42 10x6/uL (3.90-5.03); White Blood Cell (WBC) Count 6.75 10x3/uL (3.5-10.5)
[2024-11-15 04:13] LABS: ALT (SGPT) 14 U/L (Less than 34); AST (SGOT) 16 U/L (11-34); Albumin 2.7 g/dL (3.1-4.5); Alkaline Phosphatase 181 U/L (40-110); Anion Gap 10 mmol/L (10-20); BUN (Urea Nitrogen) 10 mg/dL (7.0-18.7); Bilirubin, Total 0.2 mg/dL (0.3-1.2); Calc. Creatinine Clearance 254 mL/min (70-130); Calcium 7.8 mg/dL (7.8-10.44); Carbon Dioxide 21 mmol/L (22-29); Chloride 111 mmol/L (98-107); Globulin 3.6 g/dL (2.4-3.5); Glucose 151 mg/dL (70-105); Potassium 3.2 mmol/L (3.5-5.1); Sodium 139 mmol/L (136-145)
[2024-11-15] MEDS ORDERED: Enoxaparin 40 MG (0.4 mL) SYRINGE SC SCH (09:00)
[2024-11-15] MEDS: Famotidine 20 MG TAB PO SCH (09:11)
[2024-11-15] MEDS: Aspirin 81 mg Enteric Coated Tablet PO SCH (09:11)
[2024-11-15] MEDS: Fluconazole 100 MG TAB PO SCH (09:11)
[2024-11-15] MEDS: EFAVIRENZ PO SCH (09:12)
[2024-11-15] MEDS: Gabapentin 300 MG CAP PO SCH ×2 (09:12→20:06)
[2024-11-15] MEDS: TENOFOVIR PO SCH (09:12)
[2024-11-15] MEDS: lamoTRIgine 25 MG TAB PO SCH (09:12)
[2024-11-15] MEDS: Enoxaparin 40 MG (0.4 mL) SYRINGE SC SCH (09:12)
[2024-11-15] MEDS: EMTRICITABINE PO SCH (09:12)
[2024-11-15] MEDS: Famotidine/PF 20 mg/2ml Vial SLOW IVP SCH (09:13)
[2024-11-15] MEDS: Nystatin Powder 15 GM BOT TOP PRN (09:13)
[2024-11-15 15:49] LABS: ALT (SGPT) 13 U/L (Less than 34); AST (SGOT) 14 U/L (11-34); Acetaminophen Less than 10 mcg/mL (Less than 10); Albumin 2.7 g/dL (3.1-4.5); Alkaline Phosphatase 179 U/L (40-110); Bilirubin, Direct 0.1 mg/dL (0.1-0.3); Bilirubin, Total 0.1 mg/dL (0.3-1.2)
[2024-11-15 15:50] LABS: INR-International Normal Ratio 1.1; PTT 26.5 sec (22.0-33.0); Prothrombin Time 11.9 sec (9.5-12.1)
[2024-11-15] MEDS: oxyCODONE 5 MG TAB PO PRN (16:40)
[2024-11-15] MEDS: Ondansetron PF 4 MG/2 ML Vial IVP PRN (18:18)
[2024-11-15] MEDS: Metoclopramide HCl 10 MG (2 mL) VIAL IVP SCH (21:18)
[2024-11-16 03:26] LABS: #Basophils Less than 0.03 10x3/uL (0.0-0.2); #Eosinophils 0.14 10x3/uL (0.0-0.5); #Monocytes 0.28 10x3/uL (0.0-1.1); #Neutrophils 1.73 10x3/uL (1.5-8.4); %Basophils 0.2 % (0.0-2.0); %Eosinophils 3.0 % (0.0-6.0); %Lymphocytes 53.0 % (18.0-47.0); %Monocytes 6.1 % (0.0-10.0); %Neutrophils 37.5 % (40.0-75.0); Hematocrit 29.5 % (34.9-44.5); Hemoglobin 8.5 g/dL (12.0-15.5); Mean Corpuscular Hemoglobin 23.2 pg (27.0-33.0); Mean Corpuscular Volume 80.6 fL (81.6-98.3); Platelet Count 185 10x3/uL (150-450); Red Blood Cell (RBC) Count 3.66 10x6/uL (3.90-5.03); White Blood Cell (WBC) Count 4.62 10x3/uL (3.5-10.5)
[2024-11-16 03:47] LABS: ALT (SGPT) 11 U/L (Less than 34); AST (SGOT) 11 U/L (11-34); Albumin 2.8 g/dL (3.1-4.5); Alkaline Phosphatase 177 U/L (40-110); Anion Gap 9 mmol/L (10-20); BUN (Urea Nitrogen) 7 mg/dL (7.0-18.7); Bilirubin, Total 0.2 mg/dL (0.3-1.2); Calc. Creatinine Clearance 269 mL/min (70-130); Calcium 8.1 mg/dL (7.8-10.44); Carbon Dioxide 26 mmol/L (22-29); Chloride 112 mmol/L (98-107); Globulin 3.6 g/dL (2.4-3.5); Glucose 113 mg/dL (70-105); Potassium 3.6 mmol/L (3.5-5.1); Sodium 143 mmol/L (136-145)
[2024-11-16] MEDS: Lidocaine 2% 6 ML (Jelly) SYR TOP PRN (10:22)
[2024-11-16 13:45] LABS: Magnesium 1.5 mg/dL (1.6-2.6)
[2024-11-16] MEDS: Magnesium 2 GM/50 ML(in water) 2 GM in Premix 1 BAG IVPB SCH (15:31)
[2024-11-17 04:28] LABS: #Basophils Less than 0.03 10x3/uL (0.0-0.2); #Eosinophils 0.11 10x3/uL (0.0-0.5); #Monocytes 0.29 10x3/uL (0.0-1.1); #Neutrophils 2.88 10x3/uL (1.5-8.4); %Basophils 0.4 % (0.0-2.0); %Eosinophils 2.1 % (0.0-6.0); %Lymphocytes 38.0 % (18.0-47.0); %Monocytes 5.4 % (0.0-10.0); %Neutrophils 53.9 % (40.0-75.0); Hematocrit 28.6 % (34.9-44.5); Hemoglobin 8.1 g/dL (12.0-15.5); Mean Corpuscular Hemoglobin 23.3 pg (27.0-33.0); Mean Corpuscular Volume 82.2 fL (81.6-98.3); Platelet Count 184 10x3/uL (150-450); Red Blood Cell (RBC) Count 3.48 10x6/uL (3.90-5.03); White Blood Cell (WBC) Count 5.34 10x3/uL (3.5-10.5)
[2024-11-17 04:38] LABS: ALT (SGPT) 12 U/L (Less than 34); AST (SGOT) 15 U/L (11-34); Albumin 2.8 g/dL (3.1-4.5); Alkaline Phosphatase 169 U/L (40-110); Anion Gap 9 mmol/L (10-20); BUN (Urea Nitrogen) 6 mg/dL (7.0-18.7); Bilirubin, Total 0.2 mg/dL (0.3-1.2); Calc. Creatinine Clearance 274 mL/min (70-130); Calcium 7.9 mg/dL (7.8-10.44); Carbon Dioxide 27 mmol/L (22-29); Chloride 108 mmol/L (98-107); Globulin 3.6 g/dL (2.4-3.5); Glucose 117 mg/dL (70-105); Magnesium 2.1 mg/dL (1.6-2.6); Potassium 4.1 mmol/L (3.5-5.1); Sodium 140 mmol/L (136-145)
[2024-11-18 06:16] LABS: #Basophils Less than 0.03 10x3/uL (0.0-0.2); #Eosinophils 0.16 10x3/uL (0.0-0.5); #Monocytes 0.34 10x3/uL (0.0-1.1); #Neutrophils 3.05 10x3/uL (1.5-8.4); %Basophils 0.3 % (0.0-2.0); %Eosinophils 2.8 % (0.0-6.0); %Lymphocytes 38.2 % (18.0-47.0); %Monocytes 5.9 % (0.0-10.0); %Neutrophils 52.5 % (40.0-75.0); Hematocrit 29.6 % (34.9-44.5); Hemoglobin 8.1 g/dL (12.0-15.5); Mean Corpuscular Hemoglobin 22.8 pg (27.0-33.0); Mean Corpuscular Volume 83.4 fL (81.6-98.3); Platelet Count 177 10x3/uL (150-450); Red Blood Cell (RBC) Count 3.55 10x6/uL (3.90-5.03); White Blood Cell (WBC) Count 5.81 10x3/uL (3.5-10.5)
[2024-11-18 06:22] LABS: ALT (SGPT) 14 U/L (Less than 34); AST (SGOT) 15 U/L (11-34); Albumin 2.7 g/dL (3.1-4.5); Alkaline Phosphatase 178 U/L (40-110); Anion Gap 10 mmol/L (10-20); BUN (Urea Nitrogen) 7 mg/dL (7.0-18.7); Bilirubin, Total 0.2 mg/dL (0.3-1.2); Calc. Creatinine Clearance 269 mL/min (70-130); Calcium 7.9 mg/dL (7.8-10.44); Carbon Dioxide 28 mmol/L (22-29); Chloride 106 mmol/L (98-107); Globulin 3.7 g/dL (2.4-3.5); Glucose 106 mg/dL (70-105); Potassium 4.3 mmol/L (3.5-5.1); Sodium 140 mmol/L (136-145)
[2024-11-18 15:44] VITALS: BMI 52.0
[2024-11-18 17:46] VITALS: TEMP 98.1
[2024-11-18 20:12] VITALS: BP 139/64
== END 2024-11-18 20:30 | disposition home or self-care (01) | DRG 917 ==
LOC: CSHERS 18:53 → CSHICU 21:17 → OBSVTOIN 11-16 09:18
PROVIDERS: ADMIT Internal Medicine; ATTEND Family Medicine
DX: T39.1X1A Poisoning by 4-Aminophenol derivatives, accidental (unintentional), initial encounter (principal); L89.893 Pressure ulcer of other site, stage 3; L03.315 Cellulitis of perineum; E78.5 Hyperlipidemia, unspecified; I10 Essential (primary) hypertension; I25.2 Old myocardial infarction; Z21 Asymptomatic human immunodeficiency virus [HIV] infection status; J45.909 Unspecified asthma, uncomplicated; K04.7 Periapical abscess without sinus; R00.0 Tachycardia, unspecified; F31.9 Bipolar disorder, unspecified; R74.8 Abnormal levels of other serum enzymes; Z89.422 Acquired absence of other left toe(s)
CPT/HCPCS: 36415; 36430; 70487; 71045; 76705; 80053; 80143; 80307; 83036; 83735; 84100; 84484; 85025; 85610; 85730; 86850; 86900; 86901; 87040; 93005; 93010; 93306; 93970; 94640; 94760; 94762; 96375; 96376; 97139; G0378; J0132; J0295; J1650; J1885; J2765; J3475; J7030; J7070; J7626; P9016; Q9967

== ENCOUNTER 2025-01-07 15:50 | Inpatient (IN) | payer MEDICARE ==
[2025-01-07] MEDS ORDERED: Cefepime 2 GM VIAL ONE (16:36)
[2025-01-07] MEDS ORDERED: Ibuprofen 200 MG TAB ONE (16:36)
[2025-01-07] MEDS ORDERED: Acetaminophen 500 MG TAB ONE (16:36)
[2025-01-07 18:07] LABS: Glucose, Urine (Dipstick) Normal (Negative); Leukocyte 25 (Negative); Protein, Urine (Dipstick) 30 mg/dl (Neg-Trace); Specific Gravity, Urine 1.005 (1.005-1.030)
[2025-01-07 18:21] LABS: #Basophils Less than 0.03 10x3/uL (0.0-0.2); #Eosinophils Less than 0.03 10x3/uL (0.0-0.5); #Monocytes 0.54 10x3/uL (0.0-1.1); #Neutrophils 11.04 10x3/uL (1.5-8.4); %Basophils 0.2 % (0.0-2.0); %Eosinophils 0.0 % (0.0-6.0); %Lymphocytes 5.5 % (18.0-47.0); %Monocytes 4.4 % (0.0-10.0); %Neutrophils 89.2 % (40.0-75.0); Hematocrit 28.5 % (34.9-44.5); Hemoglobin 8.0 g/dL (12.0-15.5); Mean Corpuscular Hemoglobin 23.6 pg (27.0-33.0); Mean Corpuscular Volume 84.1 fL (81.6-98.3); Platelet Count 295 10x3/uL (150-450); Red Blood Cell (RBC) Count 3.39 10x6/uL (3.90-5.03); White Blood Cell (WBC) Count 12.37 10x3/uL (3.5-10.5)
[2025-01-07 18:22] LABS: ALT (SGPT) 10 U/L (Less than 34); AST (SGOT) 18 U/L (11-34); Albumin 3.0 g/dL (3.1-4.5); Alkaline Phosphatase 147 U/L (40-110); Anion Gap 14 mmol/L (10-20); BUN (Urea Nitrogen) 11 mg/dL (7.0-18.7); Bilirubin, Total 0.3 mg/dL (0.3-1.2); Calc. Creatinine Clearance 0 mL/min (70-130); Calcium 7.1 mg/dL (7.8-10.44); Carbon Dioxide 16 mmol/L (22-29); Chloride 113 mmol/L (98-107); Globulin 3.4 g/dL (2.4-3.5); Glucose 143 mg/dL (70-105); Potassium 3.3 mmol/L (3.5-5.1); Sodium 140 mmol/L (136-145)
[2025-01-07 18:28] LABS: Troponin I Less than 0.010 ng/mL (< 0.028)
[2025-01-07] MEDS ORDERED: Acetaminophen 325 MG TAB PO PRN (18:36)
[2025-01-07 18:37] LABS: CAUTI Indications for Culture Pelvic or flank pain
[2025-01-07 18:39] LABS: Bacteria/HPF 2+ HPF (None Seen); Mucous/LPF 1+ LPF (<2+); RBC/HPF 0-3 HPF (0-3)
[2025-01-07 18:40] LABS: Urine Culture Reflex No No
[2025-01-07] MEDS ORDERED: diphenhydrAMINE 50 MG/ML VIAL ONE (18:53)
[2025-01-07] MEDS ORDERED: Senokot S 8.6-50 MG TAB PO PRN (19:06)
[2025-01-07] MEDS ORDERED: Melatonin 3 MG TAB PO PRN (19:06)
[2025-01-07] MEDS ORDERED: Dextrose 50% Abboject 50 ML SYRINGE SLOW IVP PRN (19:06)
[2025-01-07] MEDS ORDERED: Guaifenesin DM 100-10/5 ML UDCUP PO PRN (19:06)
[2025-01-07] MEDS ORDERED: Glucagon 1 MG/ML KIT IM PRN (19:06)
[2025-01-07] MEDS ORDERED: Calcium Carbonate 500 MG ChewTAB PO PRN (19:06)
[2025-01-07] MEDS ORDERED: Ventolin HFA Inhaler 60 PUFF INHALER INH PRN (19:10)
[2025-01-07 19:20] LABS: Actual Bicarbonate (HCO3a) 16.7 mEq/L (22-28); Analyzer IN Cardio CS ER; Base Excess (BEa) -7.6 mEq/L (-2.0 to +3.0); CO2 Tension 29.4 mmHg (35.0-45.0); Calcium, Ionized (arterial) 1.07 mmol/L (1.12-1.30); Critical Notified By: CP.PH; Hematocrit-ABG 25 % (36.0-47.0); Hemoglobin (Hb) 8.5 g/dL (12.0-16.0); O2 Tension (PaO2), arterial 54.0 mmHg (80.0-100.0); Potassium - ABG Lab 3.08 mmol/L (3.70-5.30); Puncture Site Left Radial artery; RapidComm Collect By CP.PH; pH, Arterial 7.372 (7.35-7.45)
[2025-01-07] MEDS ORDERED: Famotidine/PF 20 mg/2ml Vial ONE (19:50)
[2025-01-07] MEDS ORDERED: SUCCINYLCHOLINE/SOD CL,ISO/PF 200 MG/10 ML SYRINGE FS ONE (19:51)
[2025-01-07] MEDS ORDERED: PROPOFOL 20 ML ONE (19:51)
[2025-01-07] MEDS ORDERED: Rocuronium Bromide 10 MG/ML (10ML VIAL) ONE (20:12)
[2025-01-07] MEDS ORDERED: SUGAMMADEX SODIUM 200 MG/2 ML VIAL ONE (20:22)
[2025-01-07] MEDS ORDERED: Ondansetron PF 4 MG/2 ML Vial ONE (20:22)
[2025-01-07] MEDS: Potassium Chloride 20 MEQ in Premix 1 BAG IVPB SCH (22:33)
[2025-01-07] MEDS: Famotidine/PF 20 mg/2ml Vial SLOW IVP SCH (22:34)
[2025-01-07 22:55] VITALS: BMI 53.6
[2025-01-08] MEDS: Gabapentin 300 MG CAP PO SCH ×3 (00:51→20:58)
[2025-01-08] MEDS ORDERED: Nystatin Powder 15 GM BOT TOP PRN (01:09)
[2025-01-08 03:41] LABS: #Basophils Less than 0.03 10x3/uL (0.0-0.2); #Eosinophils Less than 0.03 10x3/uL (0.0-0.5); #Monocytes 0.51 10x3/uL (0.0-1.1); #Neutrophils 13.35 10x3/uL (1.5-8.4); %Basophils 0.1 % (0.0-2.0); %Eosinophils 0.1 % (0.0-6.0); %Lymphocytes 5.0 % (18.0-47.0); %Monocytes 3.4 % (0.0-10.0); %Neutrophils 89.9 % (40.0-75.0); Hematocrit 27.8 % (34.9-44.5); Hemoglobin 7.7 g/dL (12.0-15.5); Mean Corpuscular Hemoglobin 23.6 pg (27.0-33.0); Mean Corpuscular Volume 85.3 fL (81.6-98.3); Platelet Count 272 10x3/uL (150-450); Red Blood Cell (RBC) Count 3.26 10x6/uL (3.90-5.03); White Blood Cell (WBC) Count 14.87 10x3/uL (3.5-10.5)
[2025-01-08 03:52] LABS: ALT (SGPT) 10 U/L (Less than 34); AST (SGOT) 20 U/L (11-34); Albumin 2.8 g/dL (3.1-4.5); Alkaline Phosphatase 122 U/L (40-110); Anion Gap 13 mmol/L (10-20); BUN (Urea Nitrogen) 10 mg/dL (7.0-18.7); Bilirubin, Total 0.3 mg/dL (0.3-1.2); Calc. Creatinine Clearance 214 mL/min (70-130); Calcium 7.4 mg/dL (7.8-10.44); Carbon Dioxide 19 mmol/L (22-29); Chloride 116 mmol/L (98-107); Globulin 3.4 g/dL (2.4-3.5); Glucose 127 mg/dL (70-105); Magnesium 1.7 mg/dL (1.6-2.6); Potassium 3.8 mmol/L (3.5-5.1); Sodium 144 mmol/L (136-145)
[2025-01-08] MEDS: Enoxaparin 40 MG (0.4 mL) SYRINGE SC SCH (08:43)
[2025-01-08] MEDS: Magnesium Oxide 400 MG TAB PO SCH (08:44)
[2025-01-08] MEDS: Mupirocin 1 GM TUBE TP SCH (08:44)
[2025-01-08] MEDS: lamoTRIgine 25 MG TAB PO SCH (08:44)
[2025-01-08] MEDS: Fluconazole 100 MG TAB PO SCH (08:44)
[2025-01-08] MEDS: HYDROcodone/Acetaminophen 5/325 mg Tablet PO PRN (08:45)
[2025-01-08] MEDS ORDERED: lamoTRIgine 100 MG TAB PO SCH (09:00)
[2025-01-08 15:18] VITALS: BMI 53.6
[2025-01-09] MEDS: HYDROcodone/Acetaminophen 5/325 mg Tablet PO PRN (02:29)
[2025-01-09] MEDS: Butalbital 50 MG/Aspirin 325 MG/Caffeine 40 MG CAPSULE PO PRN (09:32)
[2025-01-09] MEDS: Ondansetron PF 4 MG/2 ML Vial IVP PRN (20:09)
[2025-01-10 03:54] LABS: #Basophils Less than 0.03 10x3/uL (0.0-0.2); #Eosinophils 0.18 10x3/uL (0.0-0.5); #Monocytes 0.40 10x3/uL (0.0-1.1); #Neutrophils 5.96 10x3/uL (1.5-8.4); %Basophils 0.2 % (0.0-2.0); %Eosinophils 2.2 % (0.0-6.0); %Lymphocytes 19.9 % (18.0-47.0); %Monocytes 4.9 % (0.0-10.0); %Neutrophils 72.3 % (40.0-75.0); Hematocrit 26.7 % (34.9-44.5); Hemoglobin 7.5 g/dL (12.0-15.5); Mean Corpuscular Hemoglobin 23.4 pg (27.0-33.0); Mean Corpuscular Volume 83.2 fL (81.6-98.3); Platelet Count 377 10x3/uL (150-450); Red Blood Cell (RBC) Count 3.21 10x6/uL (3.90-5.03); White Blood Cell (WBC) Count 8.24 10x3/uL (3.5-10.5)
[2025-01-10 04:06] LABS: Anion Gap 12 mmol/L (10-20); BUN (Urea Nitrogen) 14 mg/dL (7.0-18.7); Calc. Creatinine Clearance 288 mL/min (70-130); Calcium 8.1 mg/dL (7.8-10.44); Carbon Dioxide 25 mmol/L (22-29); Chloride 108 mmol/L (98-107); Glucose 99 mg/dL (70-105); Potassium 3.7 mmol/L (3.5-5.1); Sodium 141 mmol/L (136-145)
[2025-01-10] MEDS: Aluminum & Magnesium Hydroxide 60 ML, diphenhydrAMINE 150 MG, Lidocaine 2% Viscous Solu... SSW PRN (04:16)
[2025-01-11 04:48] LABS: #Basophils 0.03 10x3/uL (0.0-0.2); #Eosinophils 0.12 10x3/uL (0.0-0.5); #Monocytes 0.36 10x3/uL (0.0-1.1); #Neutrophils 4.05 10x3/uL (1.5-8.4); %Basophils 0.5 % (0.0-2.0); %Eosinophils 1.9 % (0.0-6.0); %Lymphocytes 28.5 % (18.0-47.0); %Monocytes 5.6 % (0.0-10.0); %Neutrophils 62.9 % (40.0-75.0); Hematocrit 27.8 % (34.9-44.5); Hemoglobin 7.9 g/dL (12.0-15.5); Mean Corpuscular Hemoglobin 23.4 pg (27.0-33.0); Mean Corpuscular Volume 82.2 fL (81.6-98.3); Platelet Count 404 10x3/uL (150-450); Red Blood Cell (RBC) Count 3.38 10x6/uL (3.90-5.03); White Blood Cell (WBC) Count 6.43 10x3/uL (3.5-10.5)
[2025-01-11 04:59] LABS: Anion Gap 13 mmol/L (10-20); BUN (Urea Nitrogen) 6 mg/dL (7.0-18.7); Calc. Creatinine Clearance 288 mL/min (70-130); Calcium 7.8 mg/dL (7.8-10.44); Carbon Dioxide 25 mmol/L (22-29); Chloride 106 mmol/L (98-107); Glucose 111 mg/dL (70-105); Potassium 3.8 mmol/L (3.5-5.1); Sodium 140 mmol/L (136-145)
[2025-01-11] MEDS: Dexamethasone 4 MG TAB PO SCH (12:04)
[2025-01-11] MEDS: Nystatin 500,000 UNITS/5 ML UDCUP SSW SCH (16:05)
[2025-01-12 05:33] LABS: Anion Gap 12 mmol/L (10-20); BUN (Urea Nitrogen) 7 mg/dL (7.0-18.7); Calc. Creatinine Clearance 288 mL/min (70-130); Calcium 8.3 mg/dL (7.8-10.44); Carbon Dioxide 27 mmol/L (22-29); Chloride 105 mmol/L (98-107); Glucose 132 mg/dL (70-105); Potassium 3.5 mmol/L (3.5-5.1); Sodium 140 mmol/L (136-145)
[2025-01-12 05:35] LABS: Hematocrit 29.6 % (34.9-44.5); Hemoglobin 8.3 g/dL (12.0-15.5); Mean Corpuscular Hemoglobin 23.1 pg (27.0-33.0); Mean Corpuscular Volume 82.2 fL (81.6-98.3); Platelet Count 406 10x3/uL (150-450); Red Blood Cell (RBC) Count 3.60 10x6/uL (3.90-5.03); White Blood Cell (WBC) Count 6.00 10x3/uL (3.5-10.5)
[2025-01-12 05:36] LABS: MDiff Complete? YES; Microcytosis SLIGHT = 6-15 cells (100X) (0-5/hpf); Platelet Adequacy Comment Appears Adequate
[2025-01-12] MEDS: Fosfomycin 3 GM/Packet PO SCH (10:28)
[2025-01-12 13:46] VITALS: BP 150/71; TEMP 98.2
[2025-01-12] MEDS: cefTRIAXone\\ROCEPHIN 2 GM in Sodium Chloride 0.9% 100 ML IVPB SCH (14:16)
== END 2025-01-12 16:00 | disposition home or self-care (01) | DRG 853 ==
LOC: CSHERS 15:50 → CSHERHOLD 18:30 → CSHICU 20:01 → CSHTELE 01-10 14:48
PROVIDERS: ADMIT Student in an Organized Health Care Education/Training Program; ATTEND Student in an Organized Health Care Education/Training Program
PROC: 0T778DZ Dilation of Left Ureter with Intraluminal Device, Via Natural or Artificial Opening Endoscopic (ICD-10-PCS; principal; 2025-01-07)
PROC: 3E03329 Introduction of Other Anti-infective into Peripheral Vein, Percutaneous Approach (ICD-10-PCS; 2025-01-07)
PROC: 4A03351 Measurement of Arterial Flow, Peripheral, Percutaneous Approach (ICD-10-PCS; 2025-01-07)
DX: A41.9 Sepsis, unspecified organism (principal); L89.143 Pressure ulcer of left lower back, stage 3; L89.153 Pressure ulcer of sacral region, stage 3; E87.21 Acute metabolic acidosis; Z68.43 Body mass index [BMI] 50.0-59.9, adult; N20.0 Calculus of kidney; Z21 Asymptomatic human immunodeficiency virus [HIV] infection status; I25.10 Atherosclerotic heart disease of native coronary artery without angina pectoris; I10 Essential (primary) hypertension; J45.909 Unspecified asthma, uncomplicated; F41.9 Anxiety disorder, unspecified; F31.9 Bipolar disorder, unspecified; E66.01 Morbid (severe) obesity due to excess calories; E78.5 Hyperlipidemia, unspecified; B96.89 Other specified bacterial agents as the cause of diseases classified elsewhere; G44.89 Other headache syndrome; E87.6 Hypokalemia; D64.9 Anemia, unspecified; Z88.8 Allergy status to other drugs, medicaments and biological substances; I25.2 Old myocardial infarction; Z98.890 Other specified postprocedural states; Z90.49 Acquired absence of other specified parts of digestive tract; Z98.891 History of uterine scar from previous surgery; Z82.49 Family history of ischemic heart disease and other diseases of the circulatory system; Z79.899 Other long term (current) drug therapy; Z88.1 Allergy status to other antibiotic agents
CPT/HCPCS: 36415; 36600; 71250; 74018; 74177; 80048; 80053; 81001; 82805; 83605; 83735; 83880; 84484; 85025; 86140; 87040; 87077; 87081; 87086; 87149; 87186; 87428; 93005; 94640; 94760; 94762; 96374; 96375; 97139; C2625; J0692; J0696; J1100; J1200; J1308; J2185; J2272; J2405; J2704; J3373; J3480; J7120; J8540; Q0163; Q9967